=== PATIENT | male | born 1950 | race Asian ===

== ENCOUNTER 2018-03-07 13:34 | Emergency (ER) | payer OTHER ==
[2018-03-07 13:46] VITALS: BP 150/59; PULSE 71; TEMP 98; BMI 22.0
[2018-03-07] MEDS ORDERED: DIPHTH,PERTUSS(ACELL),TET 0.5 ML DISP.SYRIN IM ONE (14:40)
[2018-03-07] MEDS ORDERED: TETRACAINE 0.5% HCL 0.6ML DROPPER.BOTTLE OS ONE (14:40)
[2018-03-07] MEDS ORDERED: TETRACAINE 0.5% OPHTH SOLN 2 ML BOTTLE ONE (14:48)
--- NOTE | 2018-03-07 14:52 | PDOC ---
History of Present Illness - General Chief Complaint: Eye Problem Stated Complaint: Eye Problem Time Seen by Provider: 03/07/18 14:34 History Source: Patient Exam Limitations: No Limitations - History of Present Illness Initial Comments: 03/07/18 14:43 67 yr male with c/o left eye injury yesterday at work. Pt was using the weedwacker and a piece of debris went in the eye. Pt has no vision change, no blurry or double vision history of cataract repair 2yrs ago. Pt does not use protective glasses. Past History - Past Medical History Allergies/Adverse Reactions: Allergies Allergy/AdvReac Type Severity Reaction Status Date / Time No Known Allergies Allergy Verified 03/07/18 13:46 Home Medications: Ambulatory Orders Atorvastatin Ca [Lipitor] 10 mg PO HS 03/07/18 Methimazole 5 mg PO ASDIR 03/07/18 Sulfacetamide Sodium 10% [Bleph-10] 2 drop OS QID #1 bottle 03/07/18 COPD: No Hypercholesterolemia: Yes Thyroid Disease: Yes - Suicide/Smoking/Psychosocial Hx Smoking History: Former smoker Have you smoked in the past 12 months: No Information on smoking cessation initiated: No *Physical Exam - Vital Signs Last Vital Signs Temp Pulse Resp BP Pulse Ox 98 F 71 18 150/59 L 99 03/07/18 13:36 03/07/18 13:36 03/07/18 13:36 03/07/18 13:36 03/07/18 13:36 - Physical Exam General Appearance: Yes: Nourished, Appropriately Dressed HEENT: positive: EOMI, MIA, Other (left eye with inner eye subconjunctival hemorrhage, EOMI no pain on movement) Procedures - Eye Procedure Alcaine Drops Administered: Yes Progress: 03/07/18 14:45 pos fluroscein uptake to the subconjunctiva inner aspect of the eye , pos subconjunctival hemorrhage 03/07/18 14:52 *DC/Admit/Observation/Transfer Diagnosis at time of Disposition: Subconjunctival bleed Corneal abrasion, left Qualifiers: Encounter type: initial encounter Qualified Code(s): S05.02XA - Injury of conjunctiva and corneal abrasion without foreign body, left eye, initial encounter - Discharge Dispostion Disposition: HOME Condition at time of disposition: Good - Prescriptions Prescriptions: Sulfacetamide Sodium 10% [Bleph-10] 2 drop OS QID #1 bottle - Referrals Referrals: Ned Renteria MD [Primary Care Provider] - Olayinka Swift [Staff Physician] - - Patient Instructions Additional Instructions: use the eye drops as directed take ibuprofen for pain as needed always use protective eye wear follow with the eye doctor in 2-3 days for follow up - Post Discharge Activity
== END 2018-03-07 15:19 | disposition home or self-care (01) ==
LOC: JERFT 13:34
PROC: 3E0234Z Introduction of Serum, Toxoid and Vaccine into Muscle, Percutaneous Approach (ICD-10-PCS; principal; 2018-03-07)
DX: S05.02XA Injury of conjunctiva and corneal abrasion without foreign body, left eye, initial encounter (principal); H11.32 Conjunctival hemorrhage, left eye; W20.8XXA Other cause of strike by thrown, projected or falling object, initial encounter; Y93.H2 Activity, gardening and landscaping; Y92.39 Other specified sports and athletic area as the place of occurrence of the external cause; Y99.0 Civilian activity done for income or pay
CPT/HCPCS: 90715; 99281-25

== ENCOUNTER 2022-10-15 04:55 | Day surgery (SDC) | payer BC ==
[2022-10-14 08:27] VITALS: BMI 21.2
[2022-10-15] MEDS ORDERED: BUPIVACAINE HCL/PF 0.5% (5MG/ML) 10 ML VIAL ONE (07:48)
[2022-10-15] MEDS ORDERED: LIDOCAINE HCL 1%, 10 MG/ML (10ML VIAL) MDV ONE (07:48)
[2022-10-15] MEDS ORDERED: SUCCINYLCHOLINE CHLORIDE 200 MG/10 ML SYRINGE ONE (08:20)
[2022-10-15] MEDS ORDERED: MIDAZOLAM HCL 2 MG/2 ML SINGLE DOSE VIAL ONE (08:20)
[2022-10-15] MEDS ORDERED: PROPOFOL 40 ML ONE (08:20)
[2022-10-15 08:21] VITALS: RESP 20
[2022-10-15] MEDS ORDERED: ceFAZolin SODIUM 1 GM VIAL IVPB ONE (08:53)
[2022-10-15] MEDS ORDERED: LIDOCAINE HCL 1%, 10 MG/ML (50 mL VIAL) INF ONE (09:01)
[2022-10-15] MEDS ORDERED: BUPIVACAINE HCL/PF 0.5% (5 MG/ML) 30 ML VIAL IJ ONE (09:01)
[2022-10-15] MEDS ORDERED: BACITRACIN ZINC 15 GM TUBE TOPICAL OINTMENT ONE (09:19)
[2022-10-15] MEDS ORDERED: BACITRACIN 0.9 GM PACKET TP ONE (09:21)
[2022-10-15 11:19] VITALS: BP 116/55; PULSE 60; TEMP 97.6
== END 2022-10-15 10:40 | disposition home or self-care (01) ==
LOC: JASU-SURG 04:55
PROVIDERS: ATTEND Surgery
PROC: 0JBD0ZZ Excision of Right Upper Arm Subcutaneous Tissue and Fascia, Open Approach (ICD-10-PCS; principal; 2022-10-15 08:00)
DX: L72.3 Sebaceous cyst (principal)
CPT/HCPCS: 88304-TC

== ENCOUNTER 2023-01-10 22:17 | Emergency (ER) | payer BC ==
[2023-01-10 22:33] VITALS: BMI 22.0
[2023-01-11 00:04] LABS: BASO % 0.6 % (0-2.0); EOS % 4.6 % (0-4.5); HEMATOCRIT 43.3 % (35.4-49); HEMOGLOBIN 14.8 GM/dL (11.7-16.9); LYMPH % 20.9 % (8-40); MCH 30.5 pg (25.7-33.7); MCHC 34.3 g/dl (32.0-35.9); MEAN CELL VOLUME 88.9 fl (80-96); MEAN PLT VOLUME 7.5 fl (7.5-11.1); NEUT % 64.9 % (42.8-82.8); PLATELET COUNT 234 10^3/uL (134-434); RBC 4.87 M/mm3 (4.00-5.60); RDW 13.6 % (11.9-15.9); WHITE BLOOD COUNT 6.5 K/mm3 (4.0-10.0)
[2023-01-11 00:30] LABS: POTASSIUM 4.3 mmol/L (3.5-5.1)
[2023-01-11 00:32] LABS: CALCIUM 8.7 mg/dL (8.5-10.1)
[2023-01-11 00:33] LABS: ALBUMIN 3.6 g/dl (3.4-5.0); BLOOD UREA NITROGEN 22.7 mg/dL (7-18); MAGNESIUM 2.4 mg/dL (1.8-2.4)
[2023-01-11 00:35] LABS: CREATININE 1.2 mg/dL (0.55-1.3)
[2023-01-11 00:37] LABS: BILIRUBIN,TOTAL 0.4 mg/dL (0.2-1); TOT PROT 6.8 g/dl (6.4-8.2)
[2023-01-11 03:05] VITALS: BP 136/69; PULSE 54; RESP 16; TEMP 97.7
== END 2023-01-11 04:32 | disposition home or self-care (01) ==
LOC: JER 22:17
DX: R00.2 Palpitations (principal); R94.6 Abnormal results of thyroid function studies; R91.1 Solitary pulmonary nodule
CPT/HCPCS: 36415; 71046-TC-FY; 80053; 83735; 84439; 84443; 84484; 85025; 93005; 93010; 99285-25

== ENCOUNTER 2023-10-07 06:51 | Emergency (ER) | payer BC ==
[2023-10-07 07:04] VITALS: BP 123/69; PULSE 70; RESP 18; TEMP 98.4; BMI 21.2
[2023-10-07 07:44] LABS: EPI CELLS 5 /uL (0-25.1); HYALINE CASTS 1 /uL (0-3.1); PH,URINE 5.5 (5.0-8.0); URINE APPEARANCE CLEAR; URINE BACTERIA 18 /uL (0-1359); URINE BILIRUBIN NEGATIVE (NEGATIVE); URINE COLOR YELLOW; URINE GLUCOSE (UA) NEGATIVE (NEGATIVE); URINE KETONE NEGATIVE (NEGATIVE); URINE LEUK ESTERASE 2+ (NEGATIVE); URINE NITRITE NEGATIVE (NEGATIVE); URINE PROTEIN NEGATIVE (NEGATIVE); URINE RBC 71 /uL (0-23.9); URINE UROBILINOGEN 0.2 mg/dL (0.2-1.0); URINE WBC 154 /uL (0-25.8)
[2023-10-07] MEDS: ACETAMINOPHEN 325 MG TABLET (FP) PO ONE (07:53)
[2023-10-07] MEDS ORDERED: ACETAMINOPHEN 325 MG TABLET (FP) ONE (07:55)
[2023-10-07] MEDS ORDERED: SULFAMETHOXAZOLE/TRIMETHOPRIM 800MG/160MG D.S. TABLET ONE (08:04)
[2023-10-07] MEDS: SULFAMETHOXAZOLE/TRIMETHOPRIM 800MG/160MG D.S. TABLET PO ONE (08:08)
== END 2023-10-07 09:34 | disposition home or self-care (01) ==
LOC: JER 06:51
DX: N39.0 Urinary tract infection, site not specified (principal); R30.0 Dysuria; R35.0 Frequency of micturition
CPT/HCPCS: 76775-TC; 81003; 87086; 99284-25